=== PATIENT | male | born 1990 | race Caucasian/White ===

== ENCOUNTER 2018-11-06 14:04 | Emergency (ER) | payer BC ==
[2018-11-06 14:20] VITALS: BP 123/67; PULSE 83; TEMP 97.8
[2018-11-06] MEDS ORDERED: KETOROLAC 60 MG/2 ML VIAL IM STA (14:59)
--- NOTE | 2018-11-06 15:36 | CT ---
EXAMINATION TYPE: CT lumbar spine wo con DATE OF EXAM: 11/06/2018 3:23 PM COMPARISON: None HISTORY: Patient states he felt something pop when bending over. CT DLP: 1091 mGycm Automated exposure control for dose reduction was used. TECHNIQUE: Unenhanced CT of the lumbar spine was performed. Bone and soft tissue window settings are submitted as well as coronal and sagittal reconstructions. FINDINGS: The lumbar spine vertebral bodies maintain normal vertebral body heights and alignment. The re is no evidence of acute fracture or dislocation of the lumbar spine. Transverse processes and pedi cles appear unremarkable. There are 5 lumbar type vertebral bodies identified. Punctate focus of air adjacent to the left sacroiliac joint is likely related to extruded sacroiliac joint air. L1-L2: Normal disc space height. No disc herniation protrusion or central stenosis. No facet joint arthropathy. No evidence for foraminal encroachment. L2-L3: Normal disc space height. No disc herniation protrusion or central stenosis. No facet joint arthropathy. No evidence for foraminal encroachment. L3-L4: Normal disc space height. No disc herniation protrusion or central stenosis. No facet joint arthropathy. No evidence for foraminal encroachment. L4-L5: There is a mild left eccentric broad-based disc bulge resulting in minimal left neural foramin al narrowing. Right neural foramen and spinal canal patent. L5-S1: There is a small central disc herniation superimposed upon a broad-based disc bulge. No signif icant spinal canal stenosis nor neural foraminal narrowing. IMPRESSION: 1. Small central disc herniation at L5-S1. No resultant spinal canal stenosis or neural foraminal louis rowing. 2. No evidence of acute fracture or malalignment of the lumbar spine. 3. Mild left eccentric broad-based disc bulge at L4-L5 resulting in minimal left neural foraminal louis rowing.
[2018-11-06] MEDS ORDERED: HYDROcodone/APAP 7.5-325MG 1 EACH TAB PO ONE (16:29)
[2018-11-06] MEDS ORDERED: ACET/COD 300 MG/30 MG STARTER PACK 6 TAB BTL PO STA (16:46)
--- NOTE | 2018-11-06 16:46 | ED ---
General Adult HPI - General Chief complaint: Back Pain/Injury Stated complaint: Back pain Source: patient, RN notes reviewed, old records reviewed Mode of arrival: ambulatory Limitations: no limitations - History of Present Illness Initial comments: 28-year-old male patient presents to ED with acute back pain. Patient states that he bent over to just something, felt pain in his lumbar spine. Patient was previously doing some mildly strenuous lifting prior to the pain, however at the time of injury was sustained he is not doing any lifting. Patient states that the pain is in has midline lumbar spine. Patient states that the pain radiates down his lateral right leg at times. Patient is ambulatory, with pain. Patient denies loss of bowel or bladder control, IV drug use, fever chills, new weakness, saddle anesthesia, paresthesias. Patient denies all other symptoms. Systemic: Pt denies fatigue, myalgia, fever/chills, rash. Pt denies weakness, night sweats, weight loss. Neuro: Pt denies headache, visual disturbances, syncope or pre-syncope. HEENT: Pt denies ocular discharge or irritation, otalgia, rhinorrhea, pharyngitis or notable lymphadenopathy. Cardiopulmonary: Pt denies chest pain, SOB, heart palpitations, dyspnea on exertion. Abdominal/GI: Pt denies abdominal pain, n/v/d. : Pt denies dysuria, burning w/ urination, frequency/urgency. Denies new onset urinary or bowel incontinence. MSK: Pt denies loss of strength or function in extremities. Neuro: Pt denies new onset weakness, paresthesias. - Related Data Previous Rx's Medication Instructions Recorded Ibuprofen [Motrin] 600 mg PO Q6HR PRN #20 day 11/06/18 predniSONE 50 mg PO DAILY #5 tab 11/06/18 Allergies Allergy/AdvReac Type Severity Reaction Status Date / Time No Known Allergies Allergy Verified 11/06/18 14:16 Review of Systems ROS Statement: Those systems with pertinent positive or pertinent negative responses have been documented in the HPI. ROS Other: All systems not noted in ROS Statement are negative. Past Medical History Past Medical History: No Reported History History of Any Multi-Drug Resistant Organisms: None Reported Past Surgical History: Adenoidectomy, Ear Surgery, Tonsillectomy Past Psychological History: No Psychological Hx Reported Smoking Status: Never smoker Past Alcohol Use History: Occasional Past Drug Use History: None Reported General Exam - General Exam Comments Initial Comments: Constitutional: NAD, AOX3, Pt has pleasant affect. HEENT: NC/AT, trachea midline, neck supple, no lymphadenopathy. Posterior pharynx non erythematous, without exudates. External ears appear normal, without discharge. Mucous membranes moist. Eyes PERRLA, EOM intact. There is no scleral icterus. No pallor noted. Cardiopulmonary: RRR, no murmurs, rubs or gallops, no JVD noted. Lungs CTAB in anterior and posterior dotson. No peripheral edema. Abdominal exam: Abdomen soft and non-distended. Abdomen non-tender to palpation in all 4 quadrants. Bowel sounds active in LLQ. No hepatosplenomegaly. Neuro: CN II-XII intact. No nuchal rigidity. MSK: Patient has mild midline lumbar tenderness to palpation. No cervical, thoracic, paralumbar tenderness to palpation. Patient has 5 out of 5 strength in psoas and quadriceps bilaterally. Patient will toe walking intact, with pain. Patient patellar and is reflexes 2 out of 4 bilaterally. Patient sensation intact in upper and lower extremities, full active range of motion. Straight leg raise positive bilaterally. No posterior calf tenderness bilaterally, homans sign negative bilaterally. Posterior tibialis and radial pulse +2 bilaterally. Limitations: no limitations Course Vital Signs 11/06/18 14:17 Temperature 97.8 F Pulse Rate 83 Respiratory 18 Rate Blood Pressure 123/67 O2 Sat by Pulse 96 Oximetry Medical Decision Making - Medical Decision Making 28-year-old male patient presents to ED after sustaining acute lumbar back pain. Physical exam displayed reproducible back pain, normal strength in lower extremities, neurovascularly intact, ambulatory. Patient denies loss of bowel or bladder control, IV drug use, fever chills, new weakness, saddle anesthesia, paresthesias. CT of lumbar spine displayed mild L4-L5 and L5-S1 central disc herniation. Patient diagnosed with lumbar disc herniation. Patient pain well- controlled and ED with Ant[place], Toradol. Patient not driving home. Patient to be discharged with prednisone, ibuprofen for pain. Patient additionally discharged with tlyenol 3 starter pack to use as needed after steroids are completed. Patient given orthopedic follow-up. Patient given work restrictions until orthopedic follow-up. Patient given strict return precautions including loss of bowel or bladder control, saddle anesthesia, new weakness, fever/chills, nausea vomiting diarrhea, any other new symptoms. Case discussed with Dr. Bunch. Pt to f/u with CP in 1-2 days. Disposition Clinical Impression: Lumbar disc herniation Disposition: HOME SELF-CARE Condition: Good Instructions: Lumbar Disc Herniation (ED), Acute Low Back Pain (ED) Additional Instructions: Patient to adhere to previously discussed treatment plan and will take medication(s) as directed. Patient to follow up with PCP in 1-2 days. Patient to return to ED if symptoms do not improve. Prescriptions: Ibuprofen [Motrin] 600 mg PO Q6HR PRN #20 day PRN Reason: Pain predniSONE 50 mg PO DAILY #5 tab Is patient prescribed a controlled substance at d/c from ED?: No Referrals: Jacques Casper DO [Primary Care Provider] - 1-2 days Kin Larios MD [Medical Doctor] - 1-2 days Time of Disposition: 16:44
[2018-11-06 17:00] VITALS: RESP 16
== END 2018-11-06 17:20 | disposition home or self-care (01) ==
LOC: EC 14:04
DX: M51.26 Other intervertebral disc displacement, lumbar region (principal)
CPT/HCPCS: 72131; 99284; 96372; J1885

== ENCOUNTER 2023-07-13 17:11 | Emergency (ER) | payer BC ==
[2023-07-13] MEDS ORDERED: ORPHENADRINE 30 MG/ML 2 ML VIAL IM STA (19:31)
[2023-07-13] MEDS ORDERED: KETOROLAC 15 MG/ML 1 ML VIAL IM STA (19:31)
--- NOTE | 2023-07-13 19:59 | ED ---
Back Pain HPI - General Chief Complaint: Back Pain/Injury Stated Complaint: Lower Back Pain Time Seen by Provider: 07/13/23 19:14 Source: patient - History of Present Illness Initial Comments: 33-year-old male with past medical history significant for prior "back problems" is the ED with chief complaint of back pain. Patient states that he was trying to pull a barrel and while pulling. A "pop" in his back. Since then, notes pain in his lower back. States pain is so severe he is having difficulty ambulating. Pain does not radiate. Denies numbness or tingling. Denies weakness. No saddle anesthesia. No incontinence. No Other complaints. - Related Data Previous Rx's Medication Instructions Recorded Ibuprofen [Motrin] 600 mg PO Q6HR PRN #20 day 11/06/18 predniSONE 50 mg PO DAILY #5 tab 11/06/18 methocarbamoL [Methocarbamol] 750 mg PO QID PRN 3 Days #12 tablet 07/13/23 Allergies Allergy/AdvReac Type Severity Reaction Status Date / Time No Known Allergies Allergy Verified 07/13/23 17:31 Review of Systems ROS Statement: Those systems with pertinent positive or pertinent negative responses have been documented in the HPI. ROS Other: All systems not noted in ROS Statement are negative. Past Medical History Past Medical History: No Reported History History of Any Multi-Drug Resistant Organisms: None Reported Past Surgical History: Adenoidectomy, Ear Surgery, Tonsillectomy Past Psychological History: No Psychological Hx Reported Smoking Status: Never smoker Past Alcohol Use History: Occasional Past Drug Use History: None Reported General Exam Limitations: no limitations General appearance: alert, in no apparent distress Neck exam: Present: normal inspection Respiratory exam: Present: normal lung sounds bilaterally Cardiovascular Exam: Present: regular rate, normal rhythm GI/Abdominal exam: Present: soft Extremities exam: Present: other (Strength and sensation intact of bilateral upper and lower extremities.) Back exam: Present: other (No midline cervical or thoracic spinal tenderness to palpation. Midline spinal tenderness to palpation at L4/5) Neurological exam: Present: alert, oriented X3 Psychiatric exam: Present: normal affect, normal mood Skin exam: Present: warm, dry Course Vital Signs 07/13/23 07/13/23 17:29 20:00 Temperature 97.9 F Pulse Rate 61 60 Respiratory 20 18 Rate Blood Pressure 135/88 124/73 O2 Sat by Pulse 98 97 Oximetry Medical Decision Making - Medical Decision Making Was pt. sent in by a medical professional or institution ([facility] Ambrose, [employer], urgent care, hospital, or care home...) When possible be specific @ -No Did you speak to anyone other than the patient for history (EMS, parent, family, police, friend...)? What history was obtained from this source @ -No Did you review nursing and triage notes (agree or disagree)? Why? @ -I reviewed and agree with nursing and triage notes Were old charts reviewed (outside hosp., previous admission, EMS record, old E KG, old radiological studies, urgent care reports/EKG's, care home records)? Report findings @ -No old charts were reviewed Differential Diagnosis (chest pain, altered mental status, abdominal pain women, abdominal pain men, vaginal bleeding, weakness, fever, dyspnea, syncope, headache, dizziness, GI bleed, back pain, seizure, CVA, palpatations, mental hea lth, musculoskeletal)? @ -Differential Back Pain: Strain, zoster, cauda equina syndrome, epidural abscess, vertebral osteomyelitis, discitis, fracture, subluxation, disc herniation, DJD, spinal stenosis, dissection, AAA, pancreatitis, peptic ulcer disease, pyelonephritis, kidney stone, this is not meant to be an all-inclusive list. EKG interpreted by me (3pts min.). @ -None X-rays interpreted by me (1pt min.). @ -X-ray showed no fracture or evidence of any other acute process. CT interpreted by me (1pt min.). @ -None done U/S interpreted by me (1pt. min.). @ -None done What testing was considered but not performed or refused? (CT, X-rays, U/S, labs)? Why? @ -None What meds were considered but not given or refused? Why? @ -None Did you discuss the management of the patient with other professionals (professionals i.e. ROMINA Ambrose, [employer]INTER [employer]EDER, lab, RT, psych nurse, social media marketing analyst, systems administrator, teacher, sanitation officer, rn case management)? Give summary @ -No Was smoking cessation discussed for >3mins.? @ -No Was critical care preformed (if so, how long)? @ -No Were there social determinants of health that impacted care today? How? (Homelessness, low income, unemployed, alcoholism, drug addiction, transportation, low edu. Level, literacy, decrease access to med. care, long term, rehab)? @ -No Was there de-escalation of care discussed even if they declined (Discuss DNR or withdrawal of care, Hospice)? DNR status @ -No What co-morbidities impacted this encounter? (DM, HTN, Smoking, COPD, CAD, Cancer, CVA, ARF, Chemo, Hep., AIDS, mental health diagnosis, sleep apnea, morbid obesity)? @ -None Was patient admitted / discharged? Hospital course, mention meds given and route, prescriptions, significant lab abnormalities, going to OR and other pertinent info. @ -Discharged. X-ray unremarkable for acute process. Patient reports significant improvement of pain with Norflex and Toradol here. Patient able to ambulate now without significant difficulty. Reports that he has follow with [facility] in the past. Patient provided [facility]. Advised follow-up with ortho/PCP as needed. Provided prescription for methocarbamol. Discharged home in stable condition. Discussed return precautions with patient who verbalizes agreement. Undiagnosed new problem with uncertain prognosis? @ -No Drug Therapy requiring intensive monitoring for toxicity (Heparin, Nitro, Insulin, Cardizem)? @ -No Were any procedures done? @ -No Diagnosis/symptom? @ -Back pain Acute, or Chronic, or Acute on Chronic? @ -Acute Uncomplicated (without systemic symptoms) or Complicated (systemic symptoms)? @ -Complicated Side effects of treatment? @ -No Exacerbation, Progression, or Severe Exacerbation? @ -No Poses a threat to life or bodily function? How? (Chest pain, [place], [place], pneumonia, PE, COPD, DKA, ARF, appy, cholecystitis, CVA, Diverticulitis, Homicidal, Suicidal, threat to staff... and all critical care pts) @ -No Disposition Clinical Impression: Back pain Disposition: HOME SELF-CARE Condition: Good Instructions (If sedation given, give patient instructions): Acute Low Back Pain (ED) Additional Instructions: Please return to the Emergency Department if symptoms worsen or any other concerns. Prescriptions: methocarbamoL [Methocarbamol] 750 mg PO QID PRN 3 Days #12 tablet PRN Reason: Pain Is patient prescribed a controlled substance at d/c from ED?: No Referrals: None,Stated [Primary Care Provider] - 1-2 days Time of Disposition: 21:10
[2023-07-13 20:07] VITALS: PULSE 60; RESP 18
--- NOTE | 2023-07-13 20:58 | XR ---
EXAMINATION TYPE: XR lumbar spine 2 or 3V DATE OF EXAM: 07/13/2023 Comparison: None Clinical History: 33-year-old male back pain. Findings: 5 lumbar type vertebral bodies. Vertebral body heights are preserved as are disc spaces. Alignment ma intained. Impression: No vertebral compression collapse or malalignment.
[2023-07-13 21:22] VITALS: BP 116/69; TEMP 98
== END 2023-07-13 21:22 | disposition home or self-care (01) ==
LOC: EC 17:11
DX: M54.50 Low back pain, unspecified (principal)
CPT/HCPCS: 72100; 99284; 96372 ×2; J2360; J1885